=== PATIENT | female | born 1995 | race Caucasian/White ===

== ENCOUNTER 2019-10-31 13:46 | Outpatient (CLI) | payer OTHER ==
[~2019-10-31] VITALS: Ht 180.3 cm; Wt 116.8 kg
--- NOTE | 2019-10-31 13:05 | NUR ---
Patient ambulatory to unit accompanied by spouse. States around 1030 she felt clear leaking fluid in her underwear. Patient denies any vaginal bleeding and states baby has been active. FHR and contraction monitors placed and explained. SVE closed/50%/high, amniotest negative, light yellow mucous noted on glove with SVE. Assessment completed. Dr. Guardado called and orders received.
--- NOTE | 2019-10-31 13:45 | NUR ---
Discharge instructions reviewed with patient and . Verbalize understanding. FHR and contraction monitors off at 1349. Isolated contraction noted at 1312 but patient denies feeling pain. Patient in own clothing and off unit at 1355.
[~2019-10-31 13:46] MED LIST: CALCIUM CARBON650 M2; PRENATAL TABLET PO; PROFERRIN ES12 MG PO; PROTONIX 40MG T40 MG PO
[2019-10-31 13:49] VITALS: BP 139/71; PULSE 72; TEMP 98.1
== END 2019-10-31 13:55 | disposition home or self-care (01) ==
LOC: LDRO 13:46
DX: O62.9 Abnormality of forces of labor, unspecified (principal); Z3A.37 37 weeks gestation of pregnancy

== ENCOUNTER → 2019-11-24 | Outpatient (CLI) | payer OTHER ==
[~2019-11-24] MED LIST changes: +IBU600 MG PO; +ZYRTEC 10MG10 MG PO
== END ==
LOC: ZCOL.LAB 09:00
DX: Z01.818 Encounter for other preprocedural examination (principal); Z20.828 Contact with and (suspected) exposure to other viral communicable diseases

== ENCOUNTER 2019-11-28 00:21 | Inpatient (IN) | payer OTHER ==
[2019-11-28] VITALS (51 sets, daily range): BP systolic 100–157; BP diastolic 61–95; PULSE 64–115; TEMP 98.1–99.8
[~2019-11-28] VITALS: Ht 180.3 cm; Wt 117.7 kg
[~2019-11-28 00:21] MED LIST changes: -IBU600 MG PO; -ZYRTEC 10MG10 MG PO
--- NOTE | 2019-11-28 00:25 | NUR ---
0025- PT. WHEELED UP TO UNIT WITH BY HER SIDE. ORIENTATED TO ROOM AND CHANGED INTO CLEAN GOWN. PT. REPORTS GFM, CONTRACTIONS EVERY 5 MINUTES SINCE SROM, AND SROM AT 2345 WITH A "POP AND LARGE GUSH OF CLEAR FLUID". 0032- EFM AND TOCO ON AND TRACING. VITALS TAKEN, ASSESSMENT COMPLETED. SROM TEST POSITIVE AND SVE 4/50/-2. CALLED PROVIDER TO GET ADMIT ORDERS. DISCUSSED PLAN OF CARE WITH THE PATIENT.
[2019-11-28] MEDS ORDERED: ZYRTEC 10MG10 MG PO (01:19)
[2019-11-28 02:33] LABS: BASO % 0.3 % (0.0-2.0); EOS # 0.2 (0.0-0.7); EOS % 1.6 % (0-4.0); GRAN # 8.2 (1.4-6.5); GRAN % 72.2 % (42.2-75.2); HEMOGLOBIN 11.3 g/dl (12.5-16.0); LYMPH # 1.6 (1.2-3.4); LYMPH % 14.4 % (20.0-51.0); MEAN CELL VOLUME 90 fl (80.0-100.0); MEAN CORPUSCULAR HEMOGLOBIN 31 pg (27.0-31.0); MEAN CORPUSCULAR HGB CONC 34 g/dl (33.0-37.0); MEAN PLATELET VOLUME 10.9 fl (7.4-10.4); MONO # 1.2 (0.1-0.6); MONO % 10.7 % (1.7-9.3); PLATELET COUNT 157 K/mm3 (130-400); RED BLOOD COUNT 3.69 M/mm3 (4.10-5.30)
[2019-11-28 02:37] LABS: HEMATOCRIT 33.3 % (37.0-47.0)
--- NOTE | 2019-11-28 02:40 | NUR ---
0240- RN TO BEDSIDE TO HELP PATIENT TO THE BATHROOM TO VOID. RN REMAINS AT BEDSIDE. 0245- PT. BACK TO BEDSIDE AND SITTING ON SIDE OF BED. EFM TRACING INTERMITTENTLY DUE TO MATERNAL POSITION. RN AT BEDSIDE CONSTANTLY READJUSTING. 0246- MELLISSA ESCOBAR TO BEDSIDE FOR EPIDURAL PLACEMENT. PROCEDURE DISCUSSED AND QUESTIONS ANSWERED. 0247- MATERNAL O2 SAT ON AND TRACING. EFM TRACING. RN REMAINS AT BEDSIDE. 0253- SS, SEE ANESTHESIA RECORD.
[2019-11-28 02:42] LABS: BILIRUBIN,TOTAL 0.3 mg/dL (0.0-1.0); CALCIUM 9.3 mg/dL (8.4-10.2); CREATININE, serum 0.55 (0.52-1.25); POTASSIUM 3.7 mmol/L (3.4-5.0); TOTAL PROTEIN 7.4 gm/dL (6.4-8.2)
[2019-11-28 03:49] LABS: COLLECTION METHOD CLEAN CATCH
[2019-11-28 03:56] LABS: MUCOUS Present /lpf; PH 6 (5-8); SQUAMOUS EPITHELIAL 0-2 /hpf; URINE APPEARANCE Hazy; URINE BACTERIA Rare /hpf; URINE BILIRUBIN Negative (NEGATIVE); URINE BLOOD 2+ (NEGATIVE); URINE COLOR Yellow; URINE GLUCOSE Negative (NEGATIVE); URINE KETONE Negative (NEGATIVE); URINE LEUKOCYTE ESTERASE 1+ (NEGATIVE); URINE NITRATE Negative (NEGATIVE); URINE PROTEIN(semi-quant) Negative (NEGATIVE); URINE UROBILINOGEN Negative (NEGATIVE)
--- NOTE | 2019-11-28 08:57 | NUR ---
Dr. Guardado at bedside. SVE per provider unchanged. Updated on 99.6F. Warm to touch. Increased FHR baseline. Orders to start pitocin. Pt repositioned RL with PB.
--- NOTE | 2019-11-28 11:10 | NUR ---
FHR deceleration noted into the 90s. FHR noted in the 70s at lowest point. Dr. Guardado notified. See physician notification. 1111-FHR returns to 155 baseline.
--- NOTE | 2019-11-28 12:03 | NUR ---
Dr. Guardado at bedside. Begins pushing with patient. Moves vertex well. 1210- of viable male infant attended by Dr. Guardado. Cord clamped x 2 and cut from umbilicus. Infant dried and placed on mother's abdomen. Care of infant to Venita Singletary RN. Apgars . 1215- of placenta. Fundus firm at umbilicus. Bleeding WNL. Pitocin bolus infusing per protocol. Second degree laceration repair by provider. Pericare performed. Ice pack applied. Bed locked in low position. Call light within reach. No questions or concerns at this time.
--- NOTE | 2019-11-28 15:15 | NUR ---
Patient sitting up in bed, epidural catheter removed, blue tip intact and bandaid to site. Patient ambulates to bathroom. Able to void. Pericare provided, tucks used. Patient ambulates to nursery to watch infant bath then to room 208 and oriented to room and call light.
[2019-11-29 02:35] VITALS: BP 135/84; PULSE 82; TEMP 98.2
[2019-11-29] MEDS ORDERED: IBU600 MG PO (08:47)
[2019-11-29 09:05] VITALS: BP 130/85; PULSE 78; TEMP 97.6
--- NOTE | 2019-11-29 09:12 | NUR ---
Initial visit; Parents thanked [employer] for offering congratulations and God's blessings for the of their son. [employer] thanked family for choosing [facility].
[2019-11-29 16:13] VITALS: BP 126/83; PULSE 88; TEMP 98
[2019-11-29 19:10] VITALS: BP 129/89; PULSE 83; TEMP 98.4
[2019-11-30 06:45] VITALS: BP 128/68; PULSE 65; TEMP 98.6
--- NOTE | 2019-11-30 10:57 | NUR ---
Patient given discharge instructions. Reviewed warning signs. Denies questions and will follow up as scheduled.
== END 2019-11-30 11:15 | disposition home or self-care (01) | DRG 807 ==
LOC: LDRO 00:21 → LDR 00:54 → OB 00:54
PROVIDERS: Obstetrics & Gynecology; ADMIT Obstetrics & Gynecology
PROC: 10E0XZZ Delivery of Products of Conception, External Approach (ICD-10-PCS; principal; 2019-11-28)
PROC: 0KQM0ZZ Repair Perineum Muscle, Open Approach (ICD-10-PCS; 2019-11-28)
PROC: 0UQMXZZ Repair Vulva, External Approach (ICD-10-PCS; 2019-11-28)
DX: O48.0 Post-term pregnancy (principal); Z37.0 Single live birth; O99.02 Anemia complicating childbirth; Z3A.41 41 weeks gestation of pregnancy; O70.1 Second degree perineal laceration during delivery
CPT/HCPCS: J2540; J2590; J2795; J7120